=== PATIENT | male | born 1980 | race Caucasian/White ===

== ENCOUNTER 2021-09-10 10:52 | Emergency (ER) | payer SELFPAY ==
[2021-09-10 12:02] LABS: HEMOGLOBIN 15.3 gm/dl (14.0-17.5); RED BLOOD COUNT 5.24 M/UL (4.20-5.50); WHITE BLOOD COUNT 9.5 K/UL (4.5-11.0)
[2021-09-10 12:27] LABS: BUN/CREATININE RATIO 21 (0-10)
== END 2021-09-10 16:51 | disposition home or self-care (01) ==
LOC: ER1 10:52
PROVIDERS: Emergency Medicine
DX: R07.89 Other chest pain (principal); E10.65 Type 1 diabetes mellitus with hyperglycemia
CPT/HCPCS: 71045; 80053; 82550; 82553; 82962; 83874; 83880; 84484; 85025; 93005; 96374; 96376; 99285; J7030; Q9967

== ENCOUNTER 2021-09-22 14:19 | Emergency (ER) | payer SELFPAY ==
[2021-09-22 16:00] LABS: HEMOGLOBIN 12.4 gm/dl (14.0-17.5); RED BLOOD COUNT 4.42 M/UL (4.20-5.50); WHITE BLOOD COUNT 8.7 K/UL (4.5-11.0)
[2021-09-22 16:24] LABS: BUN/CREATININE RATIO 17 (0-10)
[2021-09-22] MEDS ORDERED: COLACE 100MG C100 MG PO (21:20)
[2021-09-22] MEDS ORDERED: MOBIC15 MG PO (21:20)
[2021-09-22] MEDS ORDERED: OMEPRAZOLE20 M1 PO (21:20)
== END 2021-09-22 21:30 | disposition home or self-care (01) ==
LOC: ER1 14:19
PROVIDERS: Physician Assistant
DX: R07.89 Other chest pain (principal); R10.12 Left upper quadrant pain; E10.9 Type 1 diabetes mellitus without complications; R10.812 Left upper quadrant abdominal tenderness; K59.00 Constipation, unspecified; Z88.0 Allergy status to penicillin; F17.200 Nicotine dependence, unspecified, uncomplicated
CPT/HCPCS: 71045; 80053; 81001; 82550; 82553; 82962; 83690; 83874; 84484; 85025; 85379; 93005; 96374; 96375; 99285; J1885; J2405; Q9967

== ENCOUNTER 2021-10-01 12:38 | Emergency (ER) | payer SELFPAY ==
[~2021-10-01 12:38] MED LIST: COLACE 100MG C100 MG PO; MOBIC15 MG PO; OMEPRAZOLE20 M1 PO
[2021-10-01 13:52] LABS: RED BLOOD COUNT 4.83 M/UL (4.20-5.50); WHITE BLOOD COUNT 7.4 K/UL (4.5-11.0)
[2021-10-01 14:23] LABS: BUN/CREATININE RATIO 23 (0-10)
[2021-10-01] MEDS ORDERED: TORADOL 10 MG T10 MG PO (15:22)
[2021-10-01] MEDS ORDERED: DULCOLAX5 MG PO (15:22)
== END 2021-10-01 16:00 | disposition home or self-care (01) ==
LOC: ER1 12:38
PROVIDERS: Physician Assistant
DX: R07.81 Pleurodynia (principal); K59.00 Constipation, unspecified; E10.65 Type 1 diabetes mellitus with hyperglycemia; F17.200 Nicotine dependence, unspecified, uncomplicated; Z88.0 Allergy status to penicillin
CPT/HCPCS: 71101; 74018; 80053; 81001; 82550; 82553; 82962; 83690; 83874; 84484; 85025; 96374; 96375; 99283; J1885; J7030

== ENCOUNTER 2021-10-09 20:32 | Emergency (ER) | payer SELFPAY ==
[~2021-10-09 20:32] MED LIST changes: +DULCOLAX5 MG PO; +TORADOL 10 MG T10 MG PO
[2021-10-09 21:35] LABS: HEMOGLOBIN 14.5 gm/dl (14.0-17.5); RED BLOOD COUNT 5.07 M/UL (4.20-5.50); WHITE BLOOD COUNT 10.3 K/UL (4.5-11.0)
[2021-10-09 21:54] LABS: BUN/CREATININE RATIO 21 (0-10)
[2021-10-10] MEDS ORDERED: COLACE100 MG PO (00:33)
[2021-10-10] MEDS ORDERED: CITRATE OF MAG296 ML PO (00:33)
[2021-10-10] MEDS ORDERED: MIRALAX17 GM PO (00:33)
== END 2021-10-10 00:45 | disposition home or self-care (01) ==
LOC: ER1 20:32
PROVIDERS: Physician Assistant
DX: R10.32 Left lower quadrant pain (principal); R11.0 Nausea; R10.12 Left upper quadrant pain; E10.9 Type 1 diabetes mellitus without complications; Z88.0 Allergy status to penicillin; F17.210 Nicotine dependence, cigarettes, uncomplicated
CPT/HCPCS: 80053; 81001; 82009; 82800; 83605; 83690; 85025; 99284; Q9967

== ENCOUNTER 2021-10-28 22:49 | Inpatient (IN) | payer OTHER ==
[~2021-10-28] VITALS: Ht 182.9 cm; Wt 72.6 kg
[~2021-10-28 22:49] MED LIST changes: +CITRATE OF MAG296 ML PO; +COLACE100 MG PO; +MIRALAX17 GM PO
[2021-10-29 04:52] LABS: HEMOGLOBIN 14.4 gm/dl (14.0-17.5); RED BLOOD COUNT 5.34 M/UL (4.20-5.50); WHITE BLOOD COUNT 16.7 K/UL (4.5-11.0)
[2021-10-29 05:03] LABS: BUN/CREATININE RATIO 38 (0-10)
[2021-10-29 13:35] LABS: BUN/CREATININE RATIO 42 (0-10)
[2021-10-29 16:17] LABS: BUN/CREATININE RATIO 54 (0-10)
[2021-10-30 00:33] LABS: BUN/CREATININE RATIO 43 (0-10)
[2021-10-30 04:29] LABS: HEMOGLOBIN 13.5 gm/dl (14.0-17.5); WHITE BLOOD COUNT 13.1 K/UL (4.5-11.0)
[2021-10-30 04:30] LABS: RED BLOOD COUNT 4.76 M/UL (4.20-5.50)
[2021-10-30 04:58] LABS: BUN/CREATININE RATIO 53 (0-10)
[2021-10-30 09:13] LABS: BUN/CREATININE RATIO 54 (0-10)
[2021-10-30 12:13] LABS: BUN/CREATININE RATIO 53 (0-10)
[2021-10-30 16:10] LABS: BUN/CREATININE RATIO 46 (0-10)
[2021-10-30 19:25] LABS: BUN/CREATININE RATIO 44 (0-10)
[2021-10-31 04:50] LABS: HEMOGLOBIN 11.8 gm/dl (14.0-17.5); RED BLOOD COUNT 4.34 M/UL (4.20-5.50); WHITE BLOOD COUNT 10.7 K/UL (4.5-11.0)
[2021-10-31 05:14] LABS: ACINETOBACTER BAUMANNII Not Detected (Negative); CANDIDA ALBICANS Not Detected (Negative); CANDIDA KRUSEI Not Detected (Negative); CANDIDA TROPICALIS Not Detected (Negative); ENTEROCOCCUS Not Detected (Negative); ESCHERICHIA COLI Not Detected (Negative); HAEMOPHILUS INFLUENZAE Not Detected (Negative); KLEBSIELLA OXYTOCA Not Detected (Negative); KLEBSIELLA PNEUMONIAE Not Detected (Negative); KPC-CARBAPENEM-RESISTANCE GENE Not Detected (Negative); PROTEUS Not Detected (Negative); PSEUDOMONAS AERUGINOSA Not Detected (Negative); SERRATIA MARCESANS Not Detected (Negative); STAPHYLOCOCCUS AUREUS Not Detected (Negative); STREP AGALACTIAE (GROUP B) Not Detected (Negative); STREP PYOGENES (GROUP A) Not Detected (Negative); STREPTOCOCCUS Not Detected (Negative); mecA (METHICILLIN RESIST GENE Not Detected (Negative); vanA/B (VANCOMYCIN RESIST GENE Not Detected (Negative)
[2021-10-31 05:20] LABS: BUN/CREATININE RATIO 33 (0-10)
[2021-10-31 06:23] LABS: STAPHYLOCOCCUS DETECTED (Negative)
== END 2021-10-31 20:43 | disposition left against medical advice (07) | DRG 638 ==
LOC: ER1 22:49 → CDU 10-29 05:43 → CCU 10-29 05:49 → MED SURG 4 10-31 18:32
PROVIDERS: Internal Medicine; Physician Assistant; ADMIT Internal Medicine
DX: E10.10 Type 1 diabetes mellitus with ketoacidosis without coma (principal); R78.81 Bacteremia; F17.200 Nicotine dependence, unspecified, uncomplicated; F15.10 Other stimulant abuse, uncomplicated; K56.41 Fecal impaction; Z88.0 Allergy status to penicillin
CPT/HCPCS: ECHO; 36415; 36600; 71045; 74018; 80048; 80053; 80307; 81001; 82009; 82150; 82550; 82553; 82803; 82962; 83036; 83540; 83550; 83605; 83690; 83735; 83874; 84100; 84484; 85025; 85379; 86140; 87040; 87077; 87086; 87150; 87186; 93005; 93306; 94760; 99285; C9113; J1650; J2185; J2270; J3370; J7030; J7070; Q9967

== ENCOUNTER 2021-11-16 16:17 | Emergency (ER) | payer OTHER ==
[2021-11-16 17:08] LABS: HEMOGLOBIN 13.4 gm/dl (14.0-17.5); RED BLOOD COUNT 4.93 M/UL (4.20-5.50); WHITE BLOOD COUNT 6.8 K/UL (4.5-11.0)
[2021-11-16 17:32] LABS: BUN/CREATININE RATIO 11 (0-10)
== END 2021-11-16 18:17 | disposition left against medical advice (07) ==
LOC: ER1 16:17
PROVIDERS: Physician Assistant
DX: R10.12 Left upper quadrant pain (principal); E87.1 Hypo-osmolality and hyponatremia; E11.65 Type 2 diabetes mellitus with hyperglycemia; F17.200 Nicotine dependence, unspecified, uncomplicated
CPT/HCPCS: 74018; 80053; 83690; 85025; 96372; 99283; J1885

== ENCOUNTER 2021-12-23 23:29 | Emergency (ER) | payer OTHER ==
[2021-12-24 00:42] LABS: HEMOGLOBIN 13.2 gm/dl (14.0-17.5); RED BLOOD COUNT 4.85 M/UL (4.20-5.50); WHITE BLOOD COUNT 9.3 K/UL (4.5-11.0)
[2021-12-24 01:07] LABS: BUN/CREATININE RATIO 27 (0-10)
[2021-12-25] MEDS ORDERED: MIRALAX 119 GR119 GM PO (22:49)
[2021-12-25] MEDS ORDERED: ONDANSETRON ODT4 MG SL (22:49)
[2021-12-25] MEDS ORDERED: PROTONIX40 MG PO (22:49)
== END 2021-12-24 01:38 | disposition left against medical advice (07) ==
LOC: ER1 23:29
PROVIDERS: Physician Assistant
DX: R07.9 Chest pain, unspecified (principal); R06.02 Shortness of breath; R10.12 Left upper quadrant pain; E11.9 Type 2 diabetes mellitus without complications; F17.210 Nicotine dependence, cigarettes, uncomplicated; Z88.0 Allergy status to penicillin; Z79.4 Long term (current) use of insulin
CPT/HCPCS: 80053; 81001; 82150; 82550; 82553; 83690; 84484; 85025; 99283

== ENCOUNTER 2021-12-25 19:55 | Emergency (ER) | payer OTHER ==
[2021-12-25 21:16] LABS: HEMOGLOBIN 12.8 gm/dl (14.0-17.5); RED BLOOD COUNT 4.76 M/UL (4.20-5.50); WHITE BLOOD COUNT 6.7 K/UL (4.5-11.0)
[2021-12-25 21:48] LABS: BUN/CREATININE RATIO 20 (0-10)
[2021-12-25] MEDS ORDERED: MIRALAX 119 GR119 GM PO (22:49)
[2021-12-25] MEDS ORDERED: ONDANSETRON ODT4 MG SL (22:49)
[2021-12-25] MEDS ORDERED: PROTONIX40 MG PO (22:49)
[2021-12-26] MEDS ORDERED: PERCOCET 5/325 T1 EA PO (02:27)
== END 2021-12-26 02:40 | disposition home or self-care (01) ==
LOC: ER1 19:55
PROVIDERS: Physician Assistant
DX: R10.12 Left upper quadrant pain (principal); R07.81 Pleurodynia; E10.9 Type 1 diabetes mellitus without complications; R10.11 Right upper quadrant pain; K59.00 Constipation, unspecified; Z88.0 Allergy status to penicillin; F17.200 Nicotine dependence, unspecified, uncomplicated
CPT/HCPCS: 71045; 74018; 80053; 81001; 82550; 82553; 83690; 83874; 84484; 85025; 85379; 85652; 86140; 93005; 96374; 96375; 99284; C9113; J1200; J2270; J2765; Q9967

== ENCOUNTER 2021-12-27 20:17 | Emergency (ER) | payer OTHER ==
[~2021-12-27 20:17] MED LIST changes: +MIRALAX 119 GR119 GM PO; +ONDANSETRON ODT4 MG SL; +PERCOCET 5/325 T1 EA PO; +PROTONIX40 MG PO
[2021-12-27 23:40] LABS: HEMOGLOBIN 11.9 gm/dl (14.0-17.5); RED BLOOD COUNT 4.45 M/UL (4.20-5.50)
[2021-12-27 23:55] LABS: WHITE BLOOD COUNT 8.6 K/UL (4.5-11.0)
[2021-12-28 00:05] LABS: BUN/CREATININE RATIO 19 (0-10)
[2021-12-28] MEDS ORDERED: LIDOCAINE1 EAC1 TP (01:16)
[2021-12-28] MEDS ORDERED: CYCLOBENZAPRINE10 MG PO (01:16)
[2021-12-28] MEDS ORDERED: IBUPROFEN600 MG PO (01:16)
== END 2021-12-28 02:30 | disposition home or self-care (01) ==
LOC: ER1 20:17
PROVIDERS: Emergency Medicine
DX: U07.1 COVID-19 (principal); E10.9 Type 1 diabetes mellitus without complications; F17.210 Nicotine dependence, cigarettes, uncomplicated
CPT/HCPCS: 0240U; 71045; 80053; 83605; 83690; 83735; 85025; 93005; 94664; 96372; 96374; 99284; J1885; J2270; Q9967

== ENCOUNTER 2022-01-02 14:45 | Emergency (ER) | payer OTHER ==
[~2022-01-02 14:45] MED LIST changes: +CYCLOBENZAPRINE10 MG PO; +IBUPROFEN600 MG PO; +LIDOCAINE1 EAC1 TP
[2022-01-02 15:55] LABS: HEMOGLOBIN 12.3 gm/dl (14.0-17.5); RED BLOOD COUNT 4.76 M/UL (4.20-5.50); WHITE BLOOD COUNT 9.9 K/UL (4.5-11.0)
[2022-01-02 16:21] LABS: BUN/CREATININE RATIO 21 (0-10)
== END 2022-01-02 21:40 | disposition home or self-care (01) ==
LOC: ER1 14:45
PROVIDERS: Emergency Medicine
DX: M94.0 Chondrocostal junction syndrome [Tietze] (principal); F17.200 Nicotine dependence, unspecified, uncomplicated
CPT/HCPCS: 74022; 80053; 83690; 85025; 96372; 96374; 96375; 99285; J1170; J1885; J2060; Q9967

== ENCOUNTER 2022-01-05 00:08 | Emergency (ER) | payer OTHER | END 2022-01-05 01:02 | disposition left against medical advice (07) | LOC: ER1 00:08 | DX: Z53.21 Procedure and treatment not carried out due to patient leaving prior to being seen by health care provider (principal) ==

== ENCOUNTER 2022-01-07 20:02 | Emergency (ER) | payer OTHER | END 2022-01-07 22:23 | disposition left against medical advice (07) | LOC: ER1 20:02 | DX: R07.9 Chest pain, unspecified (principal); F17.200 Nicotine dependence, unspecified, uncomplicated; E11.9 Type 2 diabetes mellitus without complications; Z88.0 Allergy status to penicillin; R10.12 Left upper quadrant pain | CPT/HCPCS: 71045; 93005; 99283 ==

== ENCOUNTER → 2022-02-13 | Outpatient (CLI) | payer OTHER ==
[~2022-02-13] MED LIST changes: +LANTUS100 UNIT/1 SQ
[2022-02-13 08:36] LABS: HEMOGLOBIN 11.9 gm/dl (14.0-17.5); RED BLOOD COUNT 4.73 M/UL (4.20-5.50); WHITE BLOOD COUNT 7.8 K/UL (4.5-11.0)
== END ==
LOC: CT 07:44
PROVIDERS: Internal Medicine
DX: R22.2 Localized swelling, mass and lump, trunk (principal); M94.8X8 Other specified disorders of cartilage, other site; Z79.4 Long term (current) use of insulin
CPT/HCPCS: 36415; 82962; 85027; 85610; 85730; 87070; 87205; J2250; J2310; J3010

== ENCOUNTER → 2022-03-15 | Outpatient (CLI) | payer OTHER ==
[2022-03-18 15:11] LABS: A/G RATIO 0.8 (0.7-1.7); ALBUMIN 3.3 g/dL (2.9-4.4); ALPHA-1-GLOBULIN 0.4 g/dL (0.0-0.4); ALPHA-2-GLOBULIN 0.9 g/dL (0.4-1.0); GLOBULIN, TOTAL 4.3 g/dL (2.2-3.9); M-SPIKE Not Observed g/dL (Not Observed); PROTEIN, TOTAL, SERUM 7.6 g/dL (6.0-8.5)
== END ==
LOC: LAB 15:55
PROVIDERS: Internal Medicine
DX: D80.1 Nonfamilial hypogammaglobulinemia (principal)
CPT/HCPCS: 36415; 83883; 84155; 84165

== ENCOUNTER → 2022-03-20 | Outpatient (CLI) | payer OTHER ==
[2022-03-22 20:09] LABS: QUANTIFERON MITOGEN VALUE >10.00 IU/mL (.); QUANTIFERON NIL VALUE 0.15 IU/mL (.); QUANTIFERON TB1 AG VALUE 0.54 IU/mL (.); QUANTIFERON TB2 AG VALUE 0.71 IU/mL (.); QUANTIFERON-TB GOLD PLUS Positive (Negative)
== END ==
LOC: LAB 14:25
PROVIDERS: Internal Medicine
DX: Z11.1 Encounter for screening for respiratory tuberculosis (principal); D80.1 Nonfamilial hypogammaglobulinemia; R22.2 Localized swelling, mass and lump, trunk; Z13.6 Encounter for screening for cardiovascular disorders
CPT/HCPCS: 36415; 86606; 86612

== ENCOUNTER → 2022-04-02 | Outpatient (CLI) | payer OTHER | LOC: ECHO 08:30 | DX: Z13.6 Encounter for screening for cardiovascular disorders (principal); I08.1 Rheumatic disorders of both mitral and tricuspid valves | CPT/HCPCS: ECHO; 93306 ==

== ENCOUNTER 2022-05-25 06:19 | Observation (INO) | payer OTHER ==
[~2022-05-25] VITALS: Ht 182.9 cm; Wt 67.1 kg
[~2022-05-25 06:19] MED LIST changes: -LANTUS100 UNIT/1 SQ; +LEVEMIR FL100 UNIT/1 SQ
[2022-05-25 06:37] LABS: HEMOGLOBIN 12.7 gm/dl (14.0-17.5); RED BLOOD COUNT 4.8 M/UL (4.20-5.50); WHITE BLOOD COUNT 5.8 K/UL (4.5-11.0)
[2022-05-25 07:20] LABS: BUN/CREATININE RATIO 22 (0-10)
[2022-05-26 02:33] LABS: HEMOGLOBIN 11.7 gm/dl (14.0-17.5); RED BLOOD COUNT 4.38 M/UL (4.20-5.50); WHITE BLOOD COUNT 6.2 K/UL (4.5-11.0)
[2022-05-26 02:58] LABS: BUN/CREATININE RATIO 15 (0-10)
[2022-05-26 16:03] LABS: BUN/CREATININE RATIO 12 (0-10)
[2022-05-26] MEDS ORDERED: LEVOFLOXACIN750 MG PO (18:21)
--- NOTE | 2022-05-26 18:33 | NUR ---
The patients family member alerted staff that he was very upset after finding out that the [facility] would not release his belongings to anyone but him. I spoke to the patient and he said he needed to leave because he needed to get his things from the [facility] and he could not afford to have his car impounded. I explained to him that he may be able to call about his belongings and call to ensure that his car would not be towed. His sister also said she would try to help him with his car. I also explained to him that if he left it would be against medical advice because he needed to stay to have his blood sugar managed and to recieve IV antibiotics for pneumonia. He said he understood but still needed to leave. I notified his physician who was willing to give him po antibiotics but agreed that he needed to stay for treatment. The patient signed an ama form and his iv was removed prior to departure. The patient left with his sister and agreed to filler picker antibiotics and take them. I also educated him on returning to the ED if his felt that his blood sugar was dropping again and he was agreeable. He was stable at the time of departure and oriented x 3.
== END 2022-05-26 18:20 | disposition left against medical advice (07) ==
LOC: ER1 06:19 → CDU 10:42 → PROG CARE 10:42
PROVIDERS: Emergency Medicine; Internal Medicine; Physician Assistant Medical; Student in an Organized Health Care Education/Training Program; ADMIT Internal Medicine
DX: E10.649 Type 1 diabetes mellitus with hypoglycemia without coma (principal); G93.41 Metabolic encephalopathy; E87.2 Acidosis; E87.6 Hypokalemia; J18.9 Pneumonia, unspecified organism; J98.4 Other disorders of lung; R91.1 Solitary pulmonary nodule; F17.210 Nicotine dependence, cigarettes, uncomplicated; F19.10 Other psychoactive substance abuse, uncomplicated; Z53.29 Procedure and treatment not carried out because of patient's decision for other reasons; Z88.0 Allergy status to penicillin
CPT/HCPCS: 36415; 70450; 71045; 71250; 80048; 80053; 80307; 81001; 82550; 82553; 82962; 83605; 83735; 84484; 85025; 85027; 87040; 87086; 96361; 96374; 96375; 96376; 99285; C9113; G0378; G0480; J1335; J2270; J3475; J7042; Q9967

== ENCOUNTER 2022-07-01 20:03 | Emergency (ER) | payer OTHER ==
[~2022-07-01 20:03] MED LIST changes: +LEVOFLOXACIN750 MG PO
== END 2022-07-01 21:20 | disposition left against medical advice (07) ==
LOC: ER1 20:03
DX: Z53.21 Procedure and treatment not carried out due to patient leaving prior to being seen by health care provider (principal)

== ENCOUNTER → 2022-07-23 | Outpatient (CLI) | payer OTHER ==
[2022-07-23 17:33] LABS: HEMOGLOBIN 14.1 gm/dl (14.0-17.5); RED BLOOD COUNT 5.01 M/UL (4.20-5.50); WHITE BLOOD COUNT 7.6 K/UL (4.5-11.0)
[2022-07-23 17:59] LABS: BUN/CREATININE RATIO 18 (0-10)
== END ==
LOC: LAB 15:46
PROVIDERS: Physician Assistant Medical
DX: E11.9 Type 2 diabetes mellitus without complications (principal)
CPT/HCPCS: 36415; 80053; 80061; 83036; 85027